=== PATIENT | female | born 1980 | race Caucasian/White ===

== ENCOUNTER 2019-04-12 19:13 | Emergency (ER) | payer OTHER ==
[~2019-04-12] VITALS: Ht 243.8 cm; Wt 76.0 kg
[2019-04-12 19:34] VITALS: BP 116/55
== END 2019-04-12 21:29 | disposition home or self-care (01) ==
LOC: ER 19:14
DX: S50.12XA Contusion of left forearm, initial encounter (principal); W01.198A Fall on same level from slipping, tripping and stumbling with subsequent striking against other object, initial encounter; Y93.89 Activity, other specified; Y92.89 Other specified places as the place of occurrence of the external cause; Y99.8 Other external cause status
CPT/HCPCS: 73080; 99284